=== PATIENT | male | born 1980 | race African-American/Black ===

== ENCOUNTER 2019-07-22 11:52 | Emergency (ER) | payer OTHER ==
[~2019-07-22] VITALS: Ht 160 cm; Wt 73.5 kg
[2019-07-22 12:05] VITALS: BP 146/84
--- NOTE | 2019-07-22 12:05 | NUR ---
ED Nurse Note: Patient came into ED with aunt d/t coughing x 2 weeks. Patient is non-verbal, unable to communicate. Patient does nod and respond to questions. Patient in no acute distress.
[2019-07-22] MEDS ORDERED: Albuterol/Ipratropium 3ml neb HHN ONE (13:15)
--- NOTE | 2019-07-22 13:43 | NUR ---
ED Nurse Note: Breathing treatment given to patient by RT.
--- NOTE | 2019-07-22 13:46 | Emergency Room Report ---
History of Present Illness General Chief Complaint: Flu Like Symptoms Source: Family Member (Nalini Ho) Present Illness HPI 39-year-old male presents to the emergency department brought by caregiver complaining of persistent nonpainful cough x2 weeks with intermittent mucus production. Caregiver reports patient has a history of asthma she denies audible wheezing. Denies fevers or chills. Reports recent URI symptoms 2 weeks ago prior to onset of persisting cough. Denies swelling in the lower extremities. Denies lethargy or complaints of chest pain. Denies demonstration of being short of breath or difficulty with breathing. No other aggravating or relieving factors at this time. Pt. with hx of seizures as well. Denies cardiac hx. but caregiver reports years ago needing cardiac monitoring for some unknown reason. (Nalini Ho) Allergies: Coded Allergies: No Known Allergies (Unverified , 07/22/19) Patient History Past Medical History: see triage record Past Surgical History: none Pertinent Family History: none Reviewed Nursing Documentation: PMH: Agreed; PSxH: Agreed (Nalini Ho) Nursing Documentation-PMH Hx Asthma: Yes Hx Seizures: Yes (Nalini Ho) Review of Systems All Other Systems: negative except mentioned in HPI (Nalini Ho) Physical Exam Vital Signs Date Time Temp Pulse Resp B/P (MAP) Pulse Ox O2 Delivery O2 Flow Rate FiO2 07/22/19 11:58 98.4 93 15 146/84 (104) 96 Room Air 07/22/19 13:20 21 Sp02 EP Interpretation: reviewed, normal General Appearance: no apparent distress, alert, GCS 15, non-toxic Head: normocephalic, atraumatic Eyes: bilateral eye normal inspection, bilateral eye PERRL ENT: TMs + canals normal, uvula midline, other - pt. non-varbal and wears hearing aids Neck: full range of motion Respiratory: chest non-tender, speaking full sentences, wheezing Cardiovascular #1: regular rate, rhythm, no edema Musculoskeletal: back normal, normal range of motion, gait/station normal, non- tender Neurologic: alert, motor strength/tone normal, oriented x3, sensory intact, responsive, speech normal Psychiatric: judgement/insight normal Lymphatic: no adenopathy (Nalini Ho) Medical Decision Making PA Attestation Dr. Muse is my supervising Physician whom patient management has been discussed with. (Nalini Ho) Diagnostic Impression: Primary Impression: Bronchitis ER Course 39-year-old male presents to the emergency department brought by caregiver complaining of persistent nonpainful cough x2 weeks with intermittent mucus production. Caregiver reports patient has a history of asthma she denies audible wheezing. Denies fevers or chills. Reports recent URI symptoms 2 weeks ago prior to onset of persisting cough. Denies swelling in the lower extremities. Denies lethargy or complaints of chest pain. Denies demonstration of being short of breath or difficulty with breathing. No other aggravating or relieving factors at this time. Pt. with hx of seizures as well. Denies cardiac hx. but caregiver reports years ago needing cardiac monitoring for some unknown reason. Ddx considered but are not limited to URI, pneumonia, PE, strep pharyngitis, meningitis. Vital signs: Pt.is afebrile VS are WNL H&PE are most consistent with bronchitis will r/o CHF due to cxr. ORDERS: -CXR: increased interstitial lung markings. -BNP: WNL -Troponin: 0.00 -CBC: 11.9 wbc's otherwise unremarkable -BMP:WNL ED INTERVENTIONS: Albuterol nebulized treatment x1 improvement after intervention. DISCHARGE: At this time pt. is stable for d/c to home. Will provide printed patient care instructions, and any necessary prescriptions. Care plan and follow up instructions have been discussed with the patient prior to discharge. Labs Test 07/22/19 14:16 White Blood Count 11.9 K/UL (4.8-10.8) Red Blood Count 5.74 M/UL (4.70-6.10) Hemoglobin 16.3 G/DL (14.2-18.0) Hematocrit 48.6 % (42.0-52.0) Mean Corpuscular Volume 85 FL (80-99) Mean Corpuscular Hemoglobin 28.5 PG (27.0-31.0) Mean Corpuscular Hemoglobin Concent 33.6 G/DL (32.0-36.0) Red Cell Distribution Width 10.8 % (11.6-14.8) Platelet Count 226 K/UL (150-450) Mean Platelet Volume 6.2 FL (6.5-10.1) Neutrophils (%) (Auto) 73.4 % (45.0-75.0) Lymphocytes (%) (Auto) 13.1 % (20.0-45.0) Monocytes (%) (Auto) 9.7 % (1.0-10.0) Eosinophils (%) (Auto) 1.4 % (0.0-3.0) Basophils (%) (Auto) 2.4 % (0.0-2.0) Sodium Level 138 MMOL/L (136-145) Potassium Level 3.8 MMOL/L (3.5-5.1) Chloride Level 100 MMOL/L (98-107) Carbon Dioxide Level 28 MMOL/L (21-32) Anion Gap 10 mmol/L (5-15) Blood Urea Nitrogen 12 mg/dL (7-18) Creatinine 1.1 MG/DL (0.55-1.30) Estimat Glomerular Filtration Rate > 60 mL/min (>60) Glucose Level 102 MG/DL (74-106) Calcium Level 9.6 MG/DL (8.5-10.1) Troponin I 0.000 ng/mL (0.000-0.056) Pro-B-Type Natriuretic Peptide 9 pg/mL (0-125) (Nalini Ho) ER Course Please see above note. Patient discussed in detail. I agree with assessment and treatment plan. (Kaleb Muse MD) EKG Diagnostic Results EP Interpretation: Dr. Muse Rate: normal - 100 Rhythm: NSR ST Segments: no acute changes ASA given to the pt in ED: No PA Scribe Text This Interpretation was scribed by LUPILLO Ho. (Nalini Ho) Chest X-Ray Diagnostic Results Chest X-Ray Diagnostic Results : Chest X-Ray Ordered: Yes # of Views/Limited/Complete: 1 View Indication: Shortness of Breath EP Interpretation: Yes PA Xray: Interpretation reviewed, by supervising MD, and agrees with findings. Interpretation: no consolidation, no effusion, no pneumothorax, no acute cardiopulmonary disease Impression: No acute disease Electronically Signed by: Nalini Ho PA-C (Nalini Ho) Chest X-Ray Diagnostic Results : Electronically Signed by: Constantin Rojas documentation of Xray reviewed by me and is accurate, Kaleb Muse MD (Kaleb Muse MD) Last Vital Signs Date Time Temp Pulse Resp B/P (MAP) Pulse Ox O2 Delivery O2 Flow Rate FiO2 07/22/19 13:20 81 18 100 Room Air 21 85 18 98 07/22/19 11:58 98.4 146/84 (104) Status: improved (Nalini Ho) Last Vital Signs Date Time Temp Pulse Resp B/P (MAP) Pulse Ox O2 Delivery O2 Flow Rate FiO2 07/22/19 15:24 98.4 90 18 138/80 100 Room Air 07/22/19 13:20 21 (Kaleb Muse MD) Disposition: HOME, SELF-CARE Condition: Stable Scripts D-Methorphan Hb/Prometh Hcl* (PROMETHAZINE-DM SYRUP*) 118 Ml Syrup 5 ML ORAL Q6H PRN for For Cough, #120 ML 0 Refills Prov: Nalini Ho 07/22/19 Prednisone* (PREDNISONE*) 20 Mg Tablet 40 MG ORAL DAILY for 4 Days, #8 TAB Prov: Nalini Ho 07/22/19 Albuterol Sulfate* (ALBUTEROL SULFATE MDI*) 8.5 Gm Hfa.aer.ad 2 PUFF INH Q3H, #1 INH 0 Refills DISPENSE WITH AEROCHAMBER Prov: Nalini Ho 07/22/19 Referrals: [facility] + [facility] Patient Instructions: Acute Bronchitis, [id number] Additional Instructions: Take medications as directed. Follow up with a Primary Care Provider in 3-5 days, even if your symptoms have resolved. --Please review list of primary care clinics, if you do not already have a primary care provider Return sooner to ED if new symptoms occur, or current symptoms become worse. - Please note that this Emergency Department Report was dictated using Panizonheading and priming operator technology software, occasionally this can lead to erroneous entry secondary to interpretation by the dictation equipment. Nalini Ho Jul 22, 2019 13:46 Kaleb Muse MD Jul 23, 2019 02:19
[2019-07-22 14:43] LABS: BASOPHILS % (AUTO) 2.4 % (0.0-2.0); EOSINOPHILS % (AUTO) 1.4 % (0.0-3.0); HEMATOCRIT 48.6 % (42.0-52.0); HEMOGLOBIN 16.3 G/DL (14.2-18.0); LYMPHOCYTES % (AUTO) 13.1 % (20.0-45.0); MEAN CORPUSCULAR VOLUME 85 FL (80-99); MONOCYTES % (AUTO) 9.7 % (1.0-10.0); NEUTROPHILS % (AUTO) 73.4 % (45.0-75.0); PLATELET COUNT 226 K/UL (150-450); RED BLOOD COUNT 5.74 M/UL (4.70-6.10); RED CELL DISTRIBUTION WIDTH 10.8 % (11.6-14.8); WHITE BLOOD COUNT 11.9 K/UL (4.8-10.8)
[2019-07-22 14:52] LABS: ANION GAP 10 mmol/L (5-15); BLOOD UREA NITROGEN 12 mg/dL (7-18); CALCIUM 9.6 MG/DL (8.5-10.1); CARBON DIOXIDE 28 MMOL/L (21-32); CHLORIDE 100 MMOL/L (98-107); CREATININE 1.1 MG/DL (0.55-1.30); POTASSIUM 3.8 MMOL/L (3.5-5.1); SODIUM 138 MMOL/L (136-145)
[2019-07-22] MEDS ORDERED: PREDNISONE20 MG ORAL (15:07)
[2019-07-22] MEDS ORDERED: PROMETHAZINE-D118 ML ORAL (15:07)
[2019-07-22] MEDS ORDERED: ALBUTEROL SULF8.5 GM INH (15:07)
[2019-07-22 15:24] VITALS: BP 138/80
--- NOTE | 2019-07-22 15:24 | NUR ---
ED Nurse Note: Patient cleared for DC by Nalini WESLEY. Patient AxO x 4, no s/s of acute distress. ID band removed. Patient walks with steady gait, took all belongings.
--- NOTE | 2019-07-23 08:51 | Diagnostic Imaging Report ---
Indication: Chest pain Technique: One view of the chest Comparison: none Findings: There is bilateral interstitial disease, predominantly in the mid and lower lung distribution. No definite airspace consolidation. No effusions. Normal heart size. Impression: Bilateral diffuse interstitial disease. Suspect atypical pneumonia but interstitial edema also possible. Correlate with clinical findings
== END 2019-07-22 15:24 | disposition home or self-care (01) ==
LOC: EMR 13:40
DX: J20.9 Acute bronchitis, unspecified (principal); G40.909 Epilepsy, unspecified, not intractable, without status epilepticus
CPT/HCPCS: 36415; 71045; 80048; 83880; 84484; 85025; 93005; Z7502; 99284; J7620